=== PATIENT | male | born 1995 | race Two or more races ===

== ENCOUNTER 2020-01-05 10:56 | Emergency (ER) | payer OTHER ==
[~2020-01-05] VITALS: Ht 182.9 cm; Wt 76.7 kg
[2020-01-05] MEDS ORDERED: LIDOCAINE 1% HCL (LOCAL ANESTH.) INJ 20ML MDV IJ ONE (12:30)
[2020-01-05 12:57] VITALS: BP 150/92
== END 2020-01-05 13:17 | disposition home or self-care (01) ==
LOC: ER 10:56
DX: S61.412A Laceration without foreign body of left hand, initial encounter (principal); W25.XXXA Contact with sharp glass, initial encounter; Y93.89 Activity, other specified; Y92.89 Other specified places as the place of occurrence of the external cause; Y99.8 Other external cause status
CPT/HCPCS: 12001; 73130; 99283; J2001